=== PATIENT | male | born 1960 | race Caucasian/White ===

== ENCOUNTER → 2024-06-04 | Outpatient (CLI) | payer BC, SELFPAY ==
[2024-06-04 17:55] LABS: Absolute Lymphocyte Count 1.83 X10^3/uL (0.83-4.51); Absolute Neutrophil Count 4.5 X10^3/uL (2.0-7.7); Basophil# 0.03 X10^3/uL; Basophil% 0.4 % (0-1); Eosinophil# 0.28 X10^3/uL; Eosinophils% 3.9 % (0-5); Hematocrit 46.2 % (40-54); Lymphocyte # 1.83 X10^3/ul (0.83-4.51); Lymphocyte % 25.4 % (19-41); Mean Corp Hgb Conc 32.5 g/dL (32-36); Mean Corpuscular Hgb 29.3 pg (27.0-32.0); Mean Corpuscular Volume 90.2 fL (80-94); Mean Platelet Vol. 10.8 fl (6.2-12.0); Monocyte# 0.58 X10^3/uL; Monocyte% 8.1 % (0-10); NRBC Flagged by Analyzer 0 % (0-5); Neutrophil # 4.46 X10^3/uL (2.7-7.7); Neutrophil % 61.9 % (47-70); Platelet Count 261 K/mm3 (150-450); RBC Distribution Width CV 12.7 % (11.6-14.6); RBC Distribution Width SD 42.5 fl (35.1-43.9); Red Blood Count 5.12 M/mm3 (4.6-6.2); White Blood Count 7.2 K/mm3 (4.4-11.0)
[2024-06-04 18:20] LABS: AST(SGOT) 18 U/L (15-37); Alanine Aminotransfer ALT/SGPT 20 U/L (16-61); Albumin, Serum 3.7 g/dL (3.2-5.0); Alkaline Phosphatase 85 U/L (45-117); Anion Gap 4 (5-15); BUN 21 mg/dL (7-18); BUN/Creat Ratio 19.8 RATIO (10-20); Calcium,Total 9.3 mg/dL (8.5-10.1); Chloride 106 mmol/L (98-107); Cholesterol 217 mg/dL (200); Creatinine, Serum 1.06 mg/dL (0.70-1.30); EST Glomerular Filtration Rate 75 mL/min (>60); Est Glom Filt Rate - Afr Amer 90 mL/min (>60); Globulin 3.8 g/dL (2.2-4.2); Glucose 92 mg/dL (74-106); High Density Lipoprotein 47 mg/dL; PSA,Total - Annual Screen 0.92 ng/mL (0.00-4.00); Potassium 4.9 mmol/L (3.5-5.1); Protein, Total 7.5 g/dL (6.4-8.2); Sodium Level 139 mmol/L (136-145); Triglycerides 139 mg/dL; Very Low Density Lipoprotein 28 mg/dL (5-40)
== END | disposition home or self-care (01) ==
PROVIDERS: PCP Nurse Practitioner Family; Referring Provider Nurse Practitioner Family; Visit Provider Nurse Practitioner Family
DX: Z00.01 Encounter for general adult medical examination with abnormal findings (principal); E29.1 Testicular hypofunction; Z12.5 Encounter for screening for malignant neoplasm of prostate
CPT/HCPCS: 36415; 80053; 80061; 84153; 84403; 85025; G0103

== ENCOUNTER → 2025-01-21 | Outpatient (CLI) | payer BC, SELFPAY ==
[2025-01-21 18:24] LABS: Rheumatoid Factor < 10.0 IU/mL (<15)
[2025-01-24 12:08] LABS: ANTINUCLEAR ANTIBODIES DIRECT Negative (Negative)
[2025-01-26 01:07] LABS: CCP IgG Antibodies 26 units (0-19); Lyme IgG P18 Ab Present (.); Lyme IgG P23 Ab Present (.); Lyme IgG P28 Ab Present (.); Lyme IgG P30 Ab Present (.); Lyme IgG P39 Ab Present (.); Lyme IgG P41 Ab Present (.); Lyme IgG P45 Ab Present (.); Lyme IgG P58 Ab Present (.); Lyme IgG P66 Ab Present (.); Lyme IgG P93 Ab Present (.); Lyme IgG WB Interpretation Positive (Negative); Lyme IgM P23 Ab Present (.); Lyme IgM P39 Ab Absent (.); Lyme IgM P41 Ab Absent (.); Lyme IgM WB Interpretation Negative (Negative)
== END | disposition home or self-care (01) ==
LOC: MTLAB 16:01
PROVIDERS: PCP Nurse Practitioner Family; Referring Provider Nurse Practitioner Family; Visit Provider Nurse Practitioner Family
DX: M25.50 Pain in unspecified joint (principal)
CPT/HCPCS: 36415; 86038; 86140; 86200; 86431; 86617

== ENCOUNTER → 2025-09-20 | Outpatient (CLI) | payer BC, SELFPAY ==
[2025-09-20 15:09] LABS: Hematocrit 45.6 % (40-54); Hemoglobin 15.0 g/dL (13.0-16.5); Immature Granulocytes Count 0.010 X10^3/uL (0.0-0.0); Mean Corp Hgb Conc 32.9 g/dL (32-36); Mean Corpuscular Volume 91.8 fL (80-94); Mean Platelet Vol. 11.5 fl (6.2-12.0); NRBC Flagged by Analyzer 0 % (0-5); Platelet Count 209 K/mm3 (150-450); RBC Distribution Width CV 12.0 % (11.6-14.6); RBC Distribution Width SD 40.4 fl (35.1-43.9); Red Blood Count 4.97 M/mm3 (4.6-6.2); White Blood Count 5.3 K/mm3 (4.4-11.0)
[2025-09-20 15:35] LABS: AST(SGOT) 27 U/L (<=37); Alanine Aminotransfer ALT/SGPT 21 U/L (<=46); Albumin, Serum 4.7 g/dL (3.4-4.8); Alkaline Phosphatase 79 U/L (40-129); Anion Gap 8 (7-18); BUN 21 mg/dL (4-19); BUN/Creat Ratio 20.7 RATIO (10-20); Calcium,Total 9.8 mg/dL (7.6-11.0); Carbon Dioxide 29.1 mmol/L (20.0-29.0); Chloride 102 mmol/L (96-106); Cholesterol 200 mg/dL (<=200); Globulin 2.7 g/dL (2.2-4.2); Glucose 93 mg/dL (70-99); Low Density Lipoprotein Calc. 137 mg/dL; PSA,Total - Annual Screen 0.46 ng/mL (0.02-4.00); Potassium 4.9 mmol/L (3.5-5.1); Triglycerides 120 mg/dL; Very Low Density Lipoprotein 24 mg/dL (5-40); cholesterol:hdl ratio screen 4.83
== END | disposition home or self-care (01) ==
LOC: MTLAB 13:19
PROVIDERS: PCP Nurse Practitioner Family; Referring Provider Nurse Practitioner Family; Visit Provider Nurse Practitioner Family
DX: E78.5 Hyperlipidemia, unspecified (principal); I10 Essential (primary) hypertension; Z12.5 Encounter for screening for malignant neoplasm of prostate
CPT/HCPCS: 36415; 80053; 80061; 84153; 85025; G0103

== ENCOUNTER → 2025-09-23 | Outpatient (CLI) | payer BC, SELFPAY ==
--- OUTSIDE RECORDS SUMMARY | 2025-09-23 10:15 | XMS RPT_ITS | CCD ---
Author Organization [facility] Care Team Providers Care Software Test Specialist Name Role Phone MYNOR SERRA Unavailable Unavailable KASEY SAENZ Unavailable Unavailable KASEY SAENZ Unavailable Unavailable LINDA GERONIMO C.N.P. Attending Unavail able Dat CLAIMS CORRESPONDENCE CLERK-C, Harmony Primary Care Provider Dat CLAIMS CORRESPONDENCE CLERK-C, Harmony Attending Provider Dat CLAIMS CORRESPONDENCE CLERK-C, Harmony Referring Provider [phone] Dat, Harmony Referring Unavailable Dat, Harmony Attending Unavailable Dat, Harmony Primary Care Unavailable Dat, Harmony Primary Care Unavailable Dat, Harmony Referring Unavailable Dat, Harmony Attending Unavailable Problems Active Problems Problem Classification Problem Date Documented Da te Episodic/Chronic Other non-traumatic joint disorders (1 source) Pain in unspecified joint; Translations: [Pain in unspecified joint] Onset: 2025 Episodic Past or Other Problems Problem Classification Problem Date Documented Da te Episodic/Chronic Unclassified (1 source) Z78.9 Z86.19 Z92.29 Onset: 03-11-2023 Results Test Name Value Interpretation Reference Range Facility CCP IgG Antibodieson 025 CCP IgG Ab. 26 units High 0-19 [facility] Comment on above: Result Comment: Negative <20 Weak positive 20 - 39 Moderate positive 40 - 59 Strong positive >59 Performed at: - [facility] [id number] [employer] Program Coordinator: Negra Hicks MD, Phone: [phone] Performed at: - [facility] [address] [id number] [employer] Program Coordinator: Rizwan Siddiqi PhD, Phone: [phone] Performed By: #### L 3100.5475, L501.6710, L4600.0100, L7000.5800, L505.7010 #### [facility] [address] [place], [place], [id number] Lyme Antibodies,W Bloton Lyme Additional Comment Normal . [facility] Comment on above: Result Comment: Per CDC criteria, the Ly me IgG Immunoblot is interpreted as positive if IgG-class antibodies are detected to 5 or more B. burgdorferi proteins, and the Lyme IgM Immunoblot is interpreted as positive if IgM-class antibodies are detected to 2 or more B. burgdorferi proteins. Immunoblot patterns not meeting these criteria should not be interpreted as positive. Epitopes from certain B. burgdorferi proteins (e.g., p41) are conserved across other bacteria, which may lead to the detection of IgM-and/or IgG class antibodies on the Lyme disease immunoblots in patients without Lyme disease. Immunoblot should only be ordered on specimens that are positive or equivocal by an FDA-licensed Lyme disease antibody screening test (e.g., EIA). Results of the Lyme IgM immunoblot should not be considered in patients with 30 or more days of symptoms. Performed By: #### L 3100.5475, L501.6710, L4600.0100, L7000.5800, L505.7010 #### [facility] [address] [place], [place], [id number] LYME IgG INTERP Positive Abnormal Negative [facility] Comment on above: Performed By: #### L3100.5475, L501.6710 , L4600.0100, L7000.5800, L505.7010 #### [facility] [address] [place], [place], [id number] [phone] LYME IgM INTERP Negative Normal Negative [facility] Comment on above: Result Comment: Please Note: Lyme immuno blot alone is not recommended for the diagnosis of Lyme disease. Current guidelines recommend the use of a two-tiered approach to Lyme serology testing to improve the sensitivity and specificity of testing. [facility] offers test code 472808 Lyme Disease Serology with Reflex to aid in the diagnosis of Lyme Disease. Performed By: #### L 3100.5475, L501.6710, L4600.0100, L7000.5800, L505.7010 #### [facility] [address] [place], [address] P18 Ab Present Normal . [facility] Comment on above: Performed By: #### L3100.5475, L501.6710 , L4600.0100, L7000.5800, L505.7010 #### [facility] [address] [place], [address] P23 Ab Present Normal . [facility] Comment on above: Performed By: #### L3100.5475, L501.6710 , L4600.0100, L7000.5800, L505.7010 #### [facility] [address] [place], [address] P28 Ab Present Normal . [facility] Comment on above: Performed By: #### L3100.5475, L501.6710 , L4600.0100, L7000.5800, L505.7010 #### [facility] [address] [place], [address] P30 Ab Present Normal . [facility] Comment on above: Performed By: #### L3100.5475, L501.6710 , L4600.0100, L7000.5800, L505.7010 #### [facility] [address] [place], [facility] P39 Ab Present Normal . [facility] Comment on above: Performed By: #### L3100.5475, L501.6710 , L4600.0100, L7000.5800, L505.7010 #### [facility] [address] [place], [address] P39 Ab Absent Normal . [facility] Comment on above: Performed By: #### L3100.5475, L501.6710 , L4600.0100, L7000.5800, L505.7010 #### [facility] [address] [place], [address] P41 Ab Present Normal . [facility] Comment on above: Performed By: #### L3100.5475, L501.6710 , L4600.0100, L7000.5800, L505.7010 #### [facility] [address] [place], [address] P41 Ab Absent Normal . [facility] Comment on above: Performed By: #### L3100.5475, L501.6710 , L4600.0100, L7000.5800, L505.7010 #### [facility] [address] [place], [address] P45 Ab Present Normal . [facility] Comment on above: Performed By: #### L3100.5475, L501.6710 , L4600.0100, L7000.5800, L505.7010 #### [facility] [address] [place], [address] P58 Ab Present Normal . [facility] Comment on above: Performed By: #### L3100.5475, L501.6710 , L4600.0100, L7000.5800, L505.7010 #### [facility] [address] [place], [facility] P66 Ab Present Normal . [facility] Comment on above: Performed By: #### L3100.5475, L501.6710 , L4600.0100, L7000.5800, L505.7010 #### [facility] [address] [place], [address] P93 Ab Present Normal . [facility] Comment on above: Performed By: #### L3100.5475, L501.6710 , L4600.0100, L7000.5800, L505.7010 #### [facility] [address] [place], [place], [id number] ANTINUCLEAR ANTIBODIES DIREC Ton 01-24-2025 SHONA,DIRECT Negative Normal Negative [facility] Comment on above: Result Comment: Performed at: [facility] [id number] [employer] Program Coordinator: Rizwan Siddiqi PhD, Phone: [phone] Performed By: #### L 3100.5475, L501.6710, L4600.0100, L7000.5800, L505.7010 #### [facility] [address] [place], [place], [id number] SHONA serumOrdered By: Harmony Daugherty on 01-21-2025 Anti-Nuclear Antibody Screen Negative Negative [facility] Comment on above: Performed at: [facility] [id number] Director: Rizwan Siddiqi PhD, Phone: [phone] CRPon 01-21-2025 C-REACTIVE PROT 32.50 mg/L High 0.0-3.0 [facility] Comment on above: Performed By: #### L3100.5475, L501.6710 , L4600.0100, L7000.5800, L505.7010 #### [facility] [address] [place], [place], [id number] CRP [Mass/Vol]Ordered By: Ra lea Daugherty on 01-21-2025 C-Reactive Protein Extended Range 32.50 mg/L High 0.0-3.0 [facility] Rheumatoid Factoron 01-22-20 RHEUMATOID FAC < 10.0 Normal <15 [facility] Comment on above: Performed By: #### L3100.5475, L501.6710 , L4600.0100, L7000.5800, L505.7010 #### [facility] [address] [place], [place], [id number] Rheumatoid factor Ql (S)Orde red By: Harmony Daugherty on 01-21-2025 Rheumatoid Factor < 10.0 IU/mL <15 [facility] CBC W/Diff, Automatedon 09-0 Absolute Lymph 1.83 X10 3/uL Normal 0.83-4.51 [facility] Comment on above: Performed By: #### L501.9910, L500.4100, L100.0100, L509.3000, L500.4050 #### [facility] [address] [place], [address] Absolute Neut 4.5 X10 3/uL Normal 2.0-7.7 [facility] Comment on above: Performed By: #### L501.9910, L500.4100, L100.0100, L509.3000, L500.4050 #### [facility] [address] [place], [address] Basophils/100 WBC (Bld) 0.4 % Normal 0-1 [facility] Comment on above: Performed By: #### L501.9910, L500.4100, L100.0100, L509.3000, L500.4050 #### [facility] [address] [place], [address] Eosinophils/100 WBC (Bld) 3.9 % Normal 0-5 [facility] Comment on above: Performed By: #### L501.9910, L500.4100, L100.0100, L509.3000, L500.4050 #### [facility] [address] [place], [address] Erythrocyte distribution width (RBC) [Ratio] 12.7 % Normal 11.6-14.6 [facility] Comment on above: Performed By: #### L501.9910, L500.4100, L100.0100, L509.3000, L500.4050 #### [facility] [address] [place], [address] Hematocrit (Bld) [Volume fraction] 46.2 % Normal 40-54 [facility] Comment on above: Performed By: #### L501.9910, L500.4100, L100.0100, L509.3000, L500.4050 #### [facility] [address] [place], [address] Hemoglobin (Bld) [Mass/Vol] 15.0 g/dL Normal 13.0-16.5 [facility] Comment on above: Performed By: #### L501.9910, L500.4100, L100.0100, L509.3000, L500.4050 #### [facility] [address] [place], [address] IG% 0.300 Normal 0.0-0.9 [facility] Comment on above: Result Comment: IG% - Immature Granulocy gilberto (promyelocytes, myelocytes and metamyelocytes) > 1% indicates that a LEFT SHIFT is Present. Performed By: #### L 501.9910, L500.4100, L100.0100, L509.3000, L500.4050 #### [facility] [address] [place], [address] Lymphocytes/100 WBC (Bld) 25.4 % Normal 19-41 [facility] Comment on above: Performed By: #### L501.9910, L500.4100, L100.0100, L509.3000, L500.4050 #### [facility] [address] [place], [address] MCH (RBC) [Entitic mass] 29.3 pg Normal 27.0-32.0 [facility] Comment on above: Performed By: #### L501.9910, L500.4100, L100.0100, L509.3000, L500.4050 #### [facility] [address] [place], [address] MCHC (RBC) [Mass/Vol] 32.5 g/dL Normal 32-36 [facility] Comment on above: Performed By: #### L501.9910, L500.4100, L100.0100, L509.3000, L500.4050 #### [facility] [address] [place], [address] MCV (RBC) [Entitic vol] 90.2 fL Normal 80-94 [facility] Comment on above: Performed By: #### L501.9910, L500.4100, L100.0100, L509.3000, L500.4050 #### [facility] [address] [place], [address] Monocytes/100 WBC (Bld) 8.1 % Normal 0-10 [facility] Comment on above: Performed By: #### L501.9910, L500.4100, L100.0100, L509.3000, L500.4050 #### [facility] [address] [place], [address] Neutrophils/100 WBC (Bld) 61.9 % Normal 47-70 [facility] Comment on above: Performed By: #### L501.9910, L500.4100, L100.0100, L509.3000, L500.4050 #### [facility] [address] [place], [address] Nucleated RBC (Bld) [#/Vol] 0 10*3/uL Normal 0-5 [facility] Comment on above: Performed By: #### L501.9910, L500.4100, L100.0100, L509.3000, L500.4050 #### [facility] [address] [place], [address] Platelet mean volume (Bld) [Entitic vol] 10.8 fL Normal 6.2-12.0 [facility] Comment on above: Performed By: #### L501.9910, L500.4100, L100.0100, L509.3000, L500.4050 #### [facility] [address] [place], [address] Platelets (Bld) [#/Vol] 261 10*3/uL Normal 150-450 [facility] Comment on above: Performed By: #### L501.9910, L500.4100, L100.0100, L509.3000, L500.4050 #### [facility] [address] [place], [address] RBC (Bld) [#/Vol] 5.12 10*6/uL Normal 4.6-6.2 [facility] Comment on above: Performed By: #### L501.9910, L500.4100, L100.0100, L509.3000, L500.4050 #### [facility] [address] [place], [address] RDW SD 42.5 fl Normal 35.1-43.9 [facility] Comment on above: Performed By: #### L501.9910, L500.4100, L100.0100, L509.3000, L500.4050 #### [facility] [address] [place], [address] WBC (Bld) [#/Vol] 7.2 10*3/uL Normal 4.4-11.0 [facility] Comment on above: Performed By: #### L501.9910, L500.4100, L100.0100, L509.3000, L500.4050 #### [facility] [address] [place], [address] Comprehensive Metabolic Prof ilon 06-04-2024 Albumin [Mass/Vol] 3.7 g/dL Normal 3.2-5.0 [facility] Comment on above: Performed By: #### L501.9910, L500.4100, L100.0100, L509.3000, L500.4050 #### [facility] [address] [place], [address] Albumin/Globulin [Mass ratio] 1.0 {ratio} Normal 0.9-2.4 [facility] Comment on above: Performed By: #### L501.9910, L500.4100, L100.0100, L509.3000, L500.4050 #### [facility] [address] [place], [address] ALK P 85 U/L Normal 45-117 [facility] Comment on above: Performed By: #### L501.9910, L500.4100, L100.0100, L509.3000, L500.4050 #### [facility] [address] [place], [address] ALT [Catalytic activity/Vol] 20 U/L Normal 16-61 [facility] Comment on above: Performed By: #### L501.9910, L500.4100, L100.0100, L509.3000, L500.4050 #### [facility] [address] [place], [address] AST [Catalytic activity/Vol] 18 U/L Normal 15-37 [facility] Comment on above: Performed By: #### L501.9910, L500.4100, L100.0100, L509.3000, L500.4050 #### [facility] [address] [place], [address] Bilirubin [Mass/Vol] 0.50 mg/dL Normal 0.20-1.00 [facility] Comment on above: Result Comment: For patients on eltrombo pag therapy, use of Dimension [place] TBIL is not recommended. Performed By: #### L 501.9910, L500.4100, L100.0100, L509.3000, L500.4050 #### [facility] [address] [place], [address] BUN/CRE 19.8 RATIO Normal 10-20 [facility] Comment on above: Performed By: #### L501.9910, L500.4100, L100.0100, L509.3000, L500.4050 #### [facility] [address] [place], [address] CA,Total 9.3 mg/dL Normal 8.5-10.1 [facility] Comment on above: Performed By: #### L501.9910, L500.4100, L100.0100, L509.3000, L500.4050 #### [facility] [address] [place], [address] Chloride [Moles/Vol] 106 mmol/L Normal 98-107 [facility] Comment on above: Performed By: #### L501.9910, L500.4100, L100.0100, L509.3000, L500.4050 #### [facility] [address] [place], [address] CO2 [Moles/Vol] 29.0 mmol/L Normal 21.0-32.0 [facility] Comment on above: Performed By: #### L501.9910, L500.4100, L100.0100, L509.3000, L500.4050 #### [facility] [address] [place], [address] Creatinine [Mass/Vol] 1.06 mg/dL Normal 0.70-1.30 [facility] Comment on above: Result Comment: The validity of the calc ulated GFR GFRAA in patients over 70 years has not been determined. Clinical correlation is essential. Performed By: #### L 501.9910, L500.4100, L100.0100, L509.3000, L500.4050 #### [facility] [address] [place], [address] EST GFR - AA 90 mL/min Normal >60 [facility] Comment on above: Result Comment: GFR Eduard c Performed By: #### L 501.9910, L500.4100, L100.0100, L509.3000, L500.4050 #### [facility] [address] [place], [address] GAP 4 Low 5-15 [facility] Comment on above: Performed By: #### L501.9910, L500.4100, L100.0100, L509.3000, L500.4050 #### [facility] [address] [place], [address] GFR/1.73 sq M.predicted among non-blacks MDRD (S/P/Bld) [Vol rate/Area] 75 mL/min/{1.73_m2} Normal >60 [facility] Comment on above: Result Comment: Non- GFR Calc Performed By: #### L 501.9910, L500.4100, L100.0100, L509.3000, L500.4050 #### [facility] [address] [place], [address] Globulin (S) [Mass/Vol] 3.8 g/dL Normal 2.2-4.2 [facility] Comment on above: Performed By: #### L501.9910, L500.4100, L100.0100, L509.3000, L500.4050 #### [facility] [address] [place], [address] Glucose [Mass/Vol] 92 mg/dL Normal 74-106 [facility] Comment on above: Performed By: #### L501.9910, L500.4100, L100.0100, L509.3000, L500.4050 #### [facility] [address] [place], [address] Potassium [Moles/Vol] 4.9 mmol/L Normal 3.5-5.1 [facility] Comment on above: Performed By: #### L501.9910, L500.4100, L100.0100, L509.3000, L500.4050 #### [facility] [address] [place], [address] Sodium [Moles/Vol] 139 mmol/L Normal 136-145 [facility] Comment on above: Performed By: #### L501.9910, L500.4100, L100.0100, L509.3000, L500.4050 #### [facility] [address] [place], [address] T PROT 7.5 g/dL Normal 6.4-8.2 [facility] Comment on above: Performed By: #### L501.9910, L500.4100, L100.0100, L509.3000, L500.4050 #### [facility] [address] [place], [address] Urea nitrogen [Mass/Vol] 21 mg/dL High 7-18 [facility] Comment on above: Performed By: #### L501.9910, L500.4100, L100.0100, L509.3000, L500.4050 #### [facility] [address] [place], [address] Lipid Profileon 06-04-2024 Cholesterol [Mass/Vol] 217 mg/dL High 200 [facility] Comment on above: Result Comment: <200 mg/dL Desirable 200-240 mg/dL Borderline >240 mg/dL High Risk Performed By: #### L 501.9910, L500.4100, L100.0100, L509.3000, L500.4050 #### [facility] [address] [place], [address] Cholesterol in HDL [Mass/Vol] 47 mg/dL Normal [facility] Comment on above: Result Comment: The drugs N-Acetylcystei ne and Metamizole may falsely depress this assay. Reference Range HDL <40 mg/dL Low HDL Cholesterol HDL >or= 60 mg/dL High HDL Cholesterol Performed By: #### L 501.9910, L500.4100, L100.0100, L509.3000, L500.4050 #### [facility] [address] [place], [address] Cholesterol in LDL [Mass/Vol] 142 mg/dL High 0-130 [facility] Comment on above: Performed By: #### L501.9910, L500.4100, L100.0100, L509.3000, L500.4050 #### [facility] [address] [place], [address] Cholesterol in VLDL [Mass/Vol] 28 mg/dL Normal 5-40 [facility] Comment on above: Performed By: #### L501.9910, L500.4100, L100.0100, L509.3000, L500.4050 #### [facility] [address] [place], [address] Triglyceride [Mass/Vol] 139 mg/dL Normal [facility] Comment on above: Result Comment: The drugs N-Acetylcystei ne and Metamizole may falsely depress this assay. Serum Triglycerides Reference Interval Normal <150 mg/dL Borderline high 150 - 199 mg/dL High 200 - 499 mg/dL Very High > or = 500 mg/dL Performed By: #### L 501.9910, L500.4100, L100.0100, L509.3000, L500.4050 #### [facility] [address] [place], [address] PSA,Total - Annual Screenon 06-04-2024 PSA,TOT SCREEN 0.92 ng/mL Normal 0.00-4.00 [facility] Comment on above: Result Comment: This test was performed using the TPSA assay method for the [employer] system. Values obtained with different assay methods cannot be used interchangably. When changing PSA assays in the course of monitoring a patient, additional sequential testing should be carried out to confirm baseline values. Performed By: #### L 501.9910, L500.4100, L100.0100, L509.3000, L500.4050 #### [facility] [address] [place], [address] Testosterone, Serum Totalon 06-04-2024 Testosterone [Mass/Vol] 327.53 ng/dL Normal [facility] Comment on above: Result Comment: CENTRAL 90% REFERENCE RA NGES MALE AGE <50 197.44 - 669.58 ng/dL MALE AGE > or = 50 187.72 - 684.19 ng/dL FEMALE AGE <50 8.38 - 35.01 ng/dL FEMALE AGE > or = 50 <7.00 - 35.92 ng/dL Effective as of 04/24/21 Performed By: #### L 501.9910, L500.4100, L100.0100, L509.3000, L500.4050 #### [facility] [address] [place], [place], [address] MUMPS IGMon 03-14-2023 MUMPS IGM SEE SEPARATE REPORT [facility] Comment on above: Result Comment: Test performed at: [facility]) [address] [place], [place] [address] JOHN MANTILLA MD Performed By: #### L 800.4560, L800.7880, L800.1370, L800.1160, L800.1170 #### [place] [address] RUBAB IGMon 03-14-2023 RUBAB IGM SEE SEPARATE REPORT Normal [facility] Comment on above: Result Comment: Test performed at: [facility] [address] [place], [place] [address] JOHN MANTILLA MD Performed By: #### L 800.4560, L800.7880, L800.1370, L800.1160, L800.1170 #### [place] [address] MUMPS IGGon 03-13-2023 MUMPS IGG 285.0 AU/mL Normal Immune >10.9 [facility] Comment on above: Result Comment: Negative <9.0 Equivocal 9.0 - 10.9 Positive >10.9 A positive result generally indicates past exposure to Mumps virus or previous vaccination. Performed By: #### L 800.4560, L800.7880, L800.1370, L800.1160, L800.1170 #### [place] [address] RUBELLAon 03-13-2023 RUBELLA IMMUNE Normal [facility] Comment on above: Result Comment: REFERENCE RANGE: IMMUNE Performed By: #### L 300.0320 #### [facility] - LABORATORY [address] [place] [id number] RUBEOLAon 03-13-2023 RUBEOLA 283.0 AU/mL Normal Immune >16.4 [facility] Comment on above: Result Comment: Negative <13.5 Equivocal 13.5 - 16.4 Positive >16.4 Presence of antibodies to Rubeola is presumptive evidence of immunity except when acute infection is suspected. Performed at: [facility] [id number] [employer] Coordinator: Rizwan Siddiqi PhD, Phone: [phone] Performed By: #### L 800.4560, L800.7880, L800.1370, L800.1160, L800.1170 #### [place] [address] VZOS IGGon 03-13-2023 VZOS IGG 3990 index Normal Immune >165 [facility] Comment on above: Result Comment: Negative <135 Equivocal 135 - 165 Positive >165 A positive result generally indicates exposure to the pathogen or administration of specific immunoglobulins, but it is not indication of active infection or stage of disease. Performed By: #### L 800.4560, L800.7880, L800.1370, L800.1160, L800.1170 #### [facility] [place] [address] ANTI-HBson 03-12-2023 ANTI-HBs 81.52 mIU/mL [facility] Comment on above: Result Comment: <8.5 mIU/mL is Negative. (Individual is considered to be not immune to infection with HBV. >/= 8.5 mIU/mL and < 11.5 mIU/mL is Indeterminate. (Unable to determine if antiHBs is present at levels consistent with immunity) >11.5 mIU/mL is Positive (Anti-HBs concentration detected at >10 mIU/mL and is considered to be immune to infection with HBV) Criterion for immunity is defined by WHO Reference Preparation. Performed By: #### L 304.0465 #### [facility] [address] [place] [address] 79612 CBC NO DIFon 07-30-2021 Erythrocyte distribution width (RBC) [Ratio] 13.1 % Normal 12.7-15.3 [facility] Comment on above: Performed By: #### L200.0005 #### [facility] [address] [place] [address] 84104 Hematocrit (Bld) [Volume fraction] 45.4 % Normal 42.0-51.0 [facility] Comment on above: Performed By: #### L200.0005 #### [facility] [address] [place] [address] 19802 Hemoglobin (Bld) [Mass/Vol] 15.1 g/dL Normal 14.0-17.2 [facility] Comment on above: Performed By: #### L200.0005 #### [facility] [address] [place] [address] 86546 MCH (RBC) [Entitic mass] 30.3 pg Normal 28.8-32.2 [facility] Comment on above: Performed By: #### L200.0005 #### [facility] [address] [place] [address] 54275 MCHC (RBC) [Mass/Vol] 33.3 g/dL Normal 33.0-36.0 [facility] Comment on above: Performed By: #### L200.0005 #### [facility] [address] [place] [address] 17606 MCV (RBC) [Entitic vol] 91.2 fL Normal 80.0-94.0 [facility] Comment on above: Performed By: #### L200.0005 #### [facility] [address] [place] [address] 33054 Platelet mean volume (Bld) [Entitic vol] 8.8 fL Normal 7.4-9.2 [facility] Comment on above: Performed By: #### L200.0005 #### [facility] [address] [place] [address] 85953 PLT 224 X10(3) Normal 150-450 [facility] Comment on above: Performed By: #### L200.0005 #### [facility] [address] [place] [address] 94491 RBC 4.98 x10(6) Normal 4.80-5.50 [facility] Comment on above: Performed By: #### L200.0005 #### [facility] [address] [place] [address] 33950 WBCHS 5.9 x10(3) Normal 4.5-10.0 [facility] Comment on above: Performed By: #### L200.0005 #### [facility] [address] [place] [address] 48917 PSASCon 07-30-2021 PSASC 0.389 ng/mL Normal 0.0-4.1 [facility] Comment on above: Result Comment: Limitations: Elevations may also be associated with urethral instrumentation including catheterization of the bladder, TUR, prostatic needle biopsy, urinary retention, or prostatic infarct. Because PSA is also present in para-urethral and anal glands, as well as in breast tissue or with breast cancer, low levels of PSA can also be detected in sera from women. PSA may still be detectable even after radical prostatectomy. Performed By: #### L 304.0150, L304.1010 #### [facility] [address] [place] [address] 84244 TESTOS FR&TOTALon 07-30-2021 FREE TESTOST 3.61 ng/dL Low 4.7-24.4 [facility] Comment on above: Performed By: #### L304.0150, L304.1010 #### [facility] [address] [place] [address] 49567 TESTOST TOTAL 202.9 ng/dL Normal 193-740 [facility] Comment on above: Performed By: #### L304.0150, L304.1010 #### [facility] [address] [place] [address] 84648 CBC NO DIFon 09-25-2020 Erythrocyte distribution width (RBC) [Ratio] 13.5 % Normal 12.7-15.3 [facility] Comment on above: Performed By: #### L200.0005 #### [facility] [address] [place] [address] 54168 Hematocrit (Bld) [Volume fraction] 51.1 % High 42.0-51.0 [facility] Comment on above: Performed By: #### L200.0005 #### [facility] [address] [place] [address] 78002 Hemoglobin (Bld) [Mass/Vol] 16.9 g/dL Normal 14.0-17.2 [facility] Comment on above: Performed By: #### L200.0005 #### [facility] [address] [place] [address] 42634 MCH (RBC) [Entitic mass] 31.7 pg Normal 28.8-32.2 [facility] Comment on above: Performed By: #### L200.0005 #### [facility] [address] [place] [address] 25710 MCHC (RBC) [Mass/Vol] 33.0 g/dL Normal 33.0-36.0 [facility] Comment on above: Performed By: #### L200.0005 #### [facility] [address] [place] [address] 05551 MCV (RBC) [Entitic vol] 96.2 fL High 80.0-94.0 [facility] Comment on above: Performed By: #### L200.0005 #### [facility] [address] [place] [address] 57631 Platelet mean volume (Bld) [Entitic vol] 9.0 fL Normal 7.4-9.2 [facility] Comment on above: Performed By: #### L200.0005 #### [facility] [address] [place] [address] 32102 PLT 195 X10(3) Normal 150-450 [facility] Comment on above: Performed By: #### L200.0005 #### [facility] [address] [place] [address] 21191 RBC 5.31 x10(6) Normal 4.80-5.50 [facility] Comment on above: Performed By: #### L200.0005 #### [facility] [address] [place] [address] 14129 WBCHS 7.3 x10(3) Normal 4.5-10.0 [facility] Comment on above: Performed By: #### L200.0005 #### [facility] [address] [place] [address] 66957 DHEA SULFATEon 09-25-2020 DHEA SULFATE 112.1 ug/dL Normal 51.7-295 [facility] Comment on above: Performed By: #### L304.0140, L304.0150, L304.0162, L304.0297, L304.0475, L304.1010 #### [facility] [address] [place] [address] 76231 FREE T3on 09-25-2020 Free T3 [Mass/Vol] 3.1 pg/mL Normal 2.0-4.4 [facility] Comment on above: Performed By: #### L304.0140, L304.0150, L304.0162, L304.0297, L304.0475, L304.1010 #### - LABORATORY [address] [place] [address] 97304 Free T4on 09-25-2020 Free T4 [Mass/Vol] 1.08 ng/dL Normal 0.93-1.7 [facility] Comment on above: Performed By: #### L304.0140, L304.0150, L304.0162, L304.0297, L304.0475, L304.1010 #### - LABORATORY [address] [place] [address] 36727 PSASCon 09-25-2020 PSASC 0.4 ng/mL Normal 0.0-4.1 [facility] Comment on above: Result Comment: Limitations: Elevations may also be associated with urethral instrumentation including catheterization of the bladder, TUR, prostatic needle biopsy, urinary retention, or prostatic infarct. Because PSA is also present in para-urethral and anal glands, as well as in breast tissue or with breast cancer, low levels of PSA can also be detected in sera from women. PSA may still be detectable even after radical prostatectomy. Performed By: #### L 304.0140, L304.0150, L304.0162, L304.0297, L304.0475, L304.1010 #### - LABORATORY [address] [place] [address] 87055 TESTOS FR&TOTALon 09-25-2020 FREE TESTOST 22.93 ng/dL Normal 4.7-24.4 [facility] Comment on above: Performed By: #### L304.0140, L304.0150, L304.0162, L304.0297, L304.0475, L304.1010 #### - LABORATORY [address] [place] [address] 72875 TESTOST TOTAL 935.8 ng/dL High 193-740 [facility] Comment on above: Performed By: #### L304.0140, L304.0150, L304.0162, L304.0297, L304.0475, L304.1010 #### - LABORATORY [address] [place] [address] 95597 TSHon 09-25-2020 TSH 2.50 uIU/mL Normal 0.27-4.20 [facility] Comment on above: Performed By: #### L304.0140, L304.0150, L304.0162, L304.0297, L304.0475, L304.1010 #### - LABORATORY [address] [place] [address] 59875 RPRon 09-28-2019 Reagin Ab RPR Ql (S) Nonreactive Normal Nonreactive [facility] Comment on above: Performed By: #### UA, CBCDIF, GBTSH, GB CHEM, MG, RPR #### [facility] [address] [place], [place] [id number] CBCDIFon 09-27-2019 Abs Baso 0.02 k/uL Normal 0-0.2 [facility] Comment on above: Performed By: #### UA, CBCDIF, GBTSH, GB CHEM, MG, RPR #### [facility] [address] [place] [address] Abs Rooks 0.72 k/uL Normal 0-0.8 [facility] Comment on above: Performed By: #### UA, CBCDIF, GBTSH, GB CHEM, MG, RPR #### [facility] [address] [place] [address] Abs Neut 3.78 k/uL Normal 1.8-7.7 [facility] Comment on above: Performed By: #### UA, CBCDIF, GBTSH, GB CHEM, MG, RPR #### [facility] [address] [place] [address] Basophils/100 WBC (Bld) 0.3 % Normal 0-1 [facility] Comment on above: Performed By: #### UA, CBCDIF, GBTSH, GB CHEM, MG, RPR #### [facility] [address] [place] [address] Eosinophils (Bld) [#/Vol] 0.23 10*3/uL Normal 0-0.4 [facility] Comment on above: Performed By: #### UA, CBCDIF, GBTSH, GB CHEM, MG, RPR #### [facility] [address] [place] [address] Eosinophils/100 WBC (Bld) 3.4 % Normal 0-4 [facility] Comment on above: Performed By: #### UA, CBCDIF, GBTSH, GB CHEM, MG, RPR #### [facility] [address] [place] [address] Erythrocyte distribution width (RBC) [Ratio] 13.1 % Normal 11.5-14.5 [facility] Comment on above: Performed By: #### UA, CBCDIF, GBTSH, GB CHEM, MG, RPR #### [facility] [address] [place] [address] Hematocrit (Bld) [Volume fraction] 53.7 % High 41.0-53.0 [facility] Comment on above: Performed By: #### UA, CBCDIF, GBTSH, GB CHEM, MG, RPR #### [facility] [address] [place] [address] Hemoglobin (Bld) [Mass/Vol] 18.4 g/dL High 13.5-17.5 [facility] Comment on above: Performed By: #### UA, CBCDIF, GBTSH, GB CHEM, MG, RPR #### [facility] [address] [place] [address] Immature Gran 0.10 % Normal 0-1.9 [facility] Comment on above: Performed By: #### UA, CBCDIF, GBTSH, GB CHEM, MG, RPR #### [facility] [address] [place] [address] Lymphocytes (Bld) [#/Vol] 2.01 10*3/uL Normal 1.0-4.0 [facility] Comment on above: Performed By: #### UA, CBCDIF, GBTSH, GB CHEM, MG, RPR #### [facility] [address] [place] [address] Lymphocytes/100 WBC (Bld) 29.7 % Normal 22-44 [facility] Comment on above: Performed By: #### UA, CBCDIF, GBTSH, GB CHEM, MG, RPR #### [facility] [address] [place] [address] MCH (RBC) [Entitic mass] 31.7 pG Normal 26-34 [facility] Comment on above: Performed By: #### UA, CBCDIF, GBTSH, GB CHEM, MG, RPR #### [facility] [address] [place] [address] MCHC (RBC) [Mass/Vol] 34.3 g/dL Normal 31-37 [facility] Comment on above: Performed By: #### UA, CBCDIF, GBTSH, GB CHEM, MG, RPR #### [facility] [address] [place] [address] MCV (RBC) [Entitic vol] 92.4 fL Normal 80-100 [facility] Comment on above: Performed By: #### UA, CBCDIF, GBTSH, GB CHEM, MG, RPR #### [facility] [address] [place] [address] Monocytes/100 WBC (Bld) 10.6 % Normal 4-12 [facility] Comment on above: Performed By: #### UA, CBCDIF, GBTSH, GB CHEM, MG, RPR #### [facility] [address] [place] [address] Neutrophils/100 WBC (Bld) 55.9 % Normal 40-70 [facility] Comment on above: Performed By: #### UA, CBCDIF, GBTSH, GB CHEM, MG, RPR #### [facility] [address] [place] [address] NRBCs 0 /100 WBC Normal 0-0.9 [facility] Comment on above: Performed By: #### UA, CBCDIF, GBTSH, GB CHEM, MG, RPR #### [facility] [address] [place] [address] Platelets (Bld) [#/Vol] 200 10*3/uL Normal 150-450 [facility] Comment on above: Performed By: #### UA, CBCDIF, GBTSH, GB CHEM, MG, RPR #### [facility] [address] [place] [address] RBC (Bld) [#/Vol] 5.81 10*6/uL Normal 4.50-5.90 [facility] Comment on above: Performed By: #### UA, CBCDIF, GBTSH, GB CHEM, MG, RPR #### [facility] [address] [place], [place] [id number] WBC (Bld) [#/Vol] 6.77 10*3/uL Normal 4.5-11.0 [facility] Comment on above: Performed By: #### UA, CBCDIF, GBTSH, GB CHEM, MG, RPR #### [facility] [address] [place], [place] [id number] [facility] Chem Profon 2018 Amylase [Catalytic activity/Vol] 140 U/L High 30-110 [facility] Comment on above: Performed By: #### UA, CBCDIF, GBTSH, GB CHEM, MG, RPR #### [facility] [address] [place], [place] [id number] Anion gap [Moles/Vol] 12 mmol/L Normal 0-15 [facility] Comment on above: Performed By: #### UA, CBCDIF, GBTSH, GB CHEM, MG, RPR #### [facility] [address] [place], [place] [id number] Bilirubin Ql (U) 0.9 mg/dL Normal 0.2-1.3 [facility] Comment on above: Performed By: #### UA, CBCDIF, GBTSH, GB CHEM, MG, RPR #### [facility] [address] [place], [place] [id number] Calcium [Mass/Vol] 9.6 mg/dL Normal 8.4-10.2 [facility] Comment on above: Performed By: #### UA, CBCDIF, GBTSH, GB CHEM, MG, RPR #### [facility] [address] [place], [place] [address] Chloride [Moles/Vol] 103 mmol/L Normal 98-107 [facility] Comment on above: Performed By: #### UA, CBCDIF, GBTSH, GB CHEM, MG, RPR #### [facility] [address] [place] [address] Phosphate [Mass/Vol] 3.0 mg/dL Normal 2.5-4.5 [facility] Comment on above: Performed By: #### UA, CBCDIF, GBTSH, GB CHEM, MG, RPR #### [facility] [address] [place] [address] Potassium [Moles/Vol] 5.3 mmol/L High 3.5-5.1 [facility] Comment on above: Performed By: #### UA, CBCDIF, GBTSH, GB CHEM, MG, RPR #### [facility] [address] [place] [address] Protein [Mass/Vol] 7.3 g/dL Normal 6.2-8.2 [facility] Comment on above: Performed By: #### UA, CBCDIF, GBTSH, GB CHEM, MG, RPR #### [facility] [address] [place] [address] Sodium [Moles/Vol] 137 mmol/L Normal 137-145 [facility] Comment on above: Performed By: #### UA, CBCDIF, GBTSH, GB CHEM, MG, RPR #### [facility] [address] [place] [address] Triglyceride [Mass/Vol] 107 mg/dL Normal 35-150 [facility] Comment on above: Performed By: #### UA, CBCDIF, GBTSH, GB CHEM, MG, RPR #### [facility] [address] [place] [address] Urate [Mass/Vol] 6.6 mg/dL Normal 3.5-8.5 [facility] Comment on above: Performed By: #### UA, CBCDIF, GBTSH, GB CHEM, MG, RPR #### [facility] [address] [place] [address] Urea nitrogen [Mass/Vol] 21 mg/dL High 9-20 [facility] Comment on above: Performed By: #### UA, CBCDIF, GBTSH, GB CHEM, MG, RPR #### [facility] [address] [place] [address] Albumin [Mass/Vol] 4.2 g/dL Normal 3.5-5.0 [facility] Comment on above: Performed By: #### UA, CBCDIF, GBTSH, GB CHEM, MG, RPR #### [facility] [address] [place] [address] Alkaline Phos 53 U/L Normal 38-125 [facility] Comment on above: Performed By: #### UA, CBCDIF, GBTSH, GB CHEM, MG, RPR #### [facility] [address] [place] [address] ALT [Catalytic activity/Vol] 21 U/L Normal 0-49 [facility] Comment on above: Performed By: #### UA, CBCDIF, GBTSH, GB CHEM, MG, RPR #### [facility] [address] [place] [address] AST [Catalytic activity/Vol] 34 U/L Normal 17-59 [facility] Comment on above: Performed By: #### UA, CBCDIF, GBTSH, GB CHEM, MG, RPR #### [facility] [address] [place] [address] Cholesterol [Mass/Vol] 217 mg/dL High 100-199 [facility] Comment on above: Performed By: #### UA, CBCDIF, GBTSH, GB CHEM, MG, RPR #### [facility] [address] [place] [address] CO2 [Moles/Vol] 27 mmol/L Normal 22-30 [facility] Comment on above: Performed By: #### UA, CBCDIF, GBTSH, GB CHEM, MG, RPR #### [facility] [address] [place] [address] Creatinine [Mass/Vol] 1.15 mg/dL Normal 0.66-1.25 [facility] Comment on above: Performed By: #### UA, CBCDIF, GBTSH, GB CHEM, MG, RPR #### [facility] [address] [place] [address] eGFR Amer >60 Normal >60 [facility] Comment on above: Result Comment: MDRD calculation used fo r eGFR results. Performed By: #### U A, CBCDIF, GBTSH, GBCHEM, MG, RPR #### [facility] [address] [place] [address] eGFR non Am >60 Normal >60 [facility] Comment on above: Performed By: #### UA, CBCDIF, GBTSH, GB CHEM, MG, RPR #### [facility] [address] [place] [address] Gamma glutamyl transferase [Catalytic activity/Vol] 20 U/L Normal 15-73 [facility] Comment on above: Performed By: #### UA, CBCDIF, GBTSH, GB CHEM, MG, RPR #### [facility] [address] [place] [address] Glucose [Mass/Vol] 85 mg/dL Normal 74-106 [facility] Comment on above: Performed By: #### UA, CBCDIF, GBTSH, GB CHEM, MG, RPR #### [facility] [address] [place] [address] LDH 504 U/L Normal 318-618 [facility] Comment on above: Performed By: #### UA, CBCDIF, GBTSH, GB CHEM, MG, RPR #### [facility] [address] [place] [address] [facility] TSHon 09-27-2019 TSH Qn 3.500 uU/mL Normal 0.465-4.680 [facility] Comment on above: Result Comment: Biotin (Vitamin B7) is k nown to potentially cause an interfering NEGATIVE bias with this assay. If this result does not correlate clinically with your patient's presentation, it is suggested that Biotin use be discontinued for 2 days prior to re-testing. Performed By: #### U A, CBCDIF, GBTSH, GBCHEM, MG, RPR #### [facility] [address] [place], [place] [id number] Magnesiumon 09-27-2019 Magnesium [Mass/Vol] 2.4 mg/dL High 1.3-2.3 [facility] Comment on above: Performed By: #### UA, CBCDIF, GBTSH, GB CHEM, MG, RPR #### [facility] [address] [place], [place] [phone] Urinalysison 09-27-2019 Bilirubin [Mass/Vol] Negative Normal Negative [facility] Comment on above: Performed By: #### UA, CBCDIF, GBTSH, GB CHEM, MG, RPR #### [facility] [address] [place], [place] [id number] Clarity (U) Clear Normal Clear [facility] Comment on above: Performed By: #### UA, CBCDIF, GBTSH, GB CHEM, MG, RPR #### [facility] [address] [place], [place] [id number] Color (U) Yellow Normal Yellow [facility] Comment on above: Performed By: #### UA, CBCDIF, GBTSH, GB CHEM, MG, RPR #### [facility] [address] [place], [place] 9197024 Comments MICROSCOPIC ANALYSIS NOT DONE ON URINES WITH NEGATIVE BIOCHEMICAL TESTS Normal [facility] Comment on above: Performed By: #### UA, CBCDIF, GBTSH, GB CHEM, MG, RPR #### [facility] [address] [place], [place] [id number] Glucose [Mass/Vol] Negative Normal Negative [facility] Comment on above: Performed By: #### UA, CBCDIF, GBTSH, GB CHEM, MG, RPR #### [facility] [address] [place] [address] Hemoglobin/Blood Negative Normal Negative [facility] Comment on above: Performed By: #### UA, CBCDIF, GBTSH, GB CHEM, MG, RPR #### [facility] [address] [place] [address] Ketone Negative Normal Negative [facility] Comment on above: Performed By: #### UA, CBCDIF, GBTSH, GB CHEM, MG, RPR #### [facility] [address] [place] [address] Leukest Negative Normal Negative [facility] Comment on above: Performed By: #### UA, CBCDIF, GBTSH, GB CHEM, MG, RPR #### [facility] [address] [place] [address] Nitrite Ql (U) Negative Normal Negative [facility] Comment on above: Performed By: #### UA, CBCDIF, GBTSH, GB CHEM, MG, RPR #### [facility] [address] [place] [address] pH (U) 7.0 [pH] Normal 5-7 [facility] Comment on above: Performed By: #### UA, CBCDIF, GBTSH, GB CHEM, MG, RPR #### [facility] [address] [place] [address] Protein (U) [Mass/Vol] Negative Normal Negative [facility] Comment on above: Performed By: #### UA, CBCDIF, GBTSH, GB CHEM, MG, RPR #### [facility] [address] [place] [address] Urine Spec [place] 1.021 Normal 1.005-1.030 [facility] Comment on above: Performed By: #### UA, CBCDIF, GBTSH, GB CHEM, MG, RPR #### [facility] [address] [place] [address] Urobilinogen Qn (U) <2.0 Normal 0.0-1.0 [facility] Comment on above: Performed By: #### UA, CBCDIF, GBTSH, GB CHEM, MG, RPR #### [facility] [address] [place], [place] [id number] LMERLYon 08-26-2018 Lyme IgG/IgM AB Negative Normal NEGAT [facility] ([place]) Comment on above: Result Comment: Absence of detectable Kosta rrelia burgdorferi antibodies. A negative result does not exclude the possibility of Borrelia burgdorferi infection. If early Lyme disease is suspected, a second sample should be collected and tested two to four weeks later.Performed By:[facility] [place] [id number] Director: TROY Carbone#: [id number]#: Performed By: #### H H, CMP, GFR, TROPI, APTT, PRO, ABORH, ANTIS ####[place] [address] .Auto Diffon 08-25-2018 Ammonia mass conc (P) 0.90 10 3/mcL Normal 0.09-1.40 [facility] ([place]) Comment on above: Performed By: #### HH, CMP, GFR, TROPI, APTT, PRO, ABORH, ANTIS ####[address] [address] Basophils Auto #/vol (Bld) 0.00 10 3/mcL Normal 0.00-0.27 [facility] ([place]) Comment on above: Performed By: #### HH, CMP, GFR, TROPI, APTT, PRO, ABORH, ANTIS ####[address] [address] Basophils/100 WBC Auto (Bld) 0.7 % Normal 0.0-2.5 [facility] ([place]) Comment on above: Performed By: #### HH, CMP, GFR, TROPI, APTT, PRO, ABORH, ANTIS ####[address] [address] Eosinophils Auto #/vol (Bld) 0.40 10 3/mcL Normal 0.00-0.65 [facility] ([place]) Comment on above: Performed By: #### HH, CMP, GFR, TROPI, APTT, PRO, ABORH, ANTIS ####[address] [address] Eosinophils/100 WBC Auto (Bld) 6.0 % Normal 0.0-6.0 [facility] ([place]) Comment on above: Performed By: #### HH, CMP, GFR, TROPI, APTT, PRO, ABORH, ANTIS ####[address] [address] Lymphocytes Auto #/vol (Bld) 1.10 10 3/mcL Normal 0.90-4.32 [facility] ([place]) Comment on above: Performed By: #### HH, CMP, GFR, TROPI, APTT, PRO, ABORH, ANTIS ####[address] [address] Lymphocytes/100 WBC Auto (Bld) 18.0 % Low 20.0-40.0 [facility] ([place]) Comment on above: Performed By: #### HH, CMP, GFR, TROPI, APTT, PRO, ABORH, ANTIS ####[address] [address] Monocytes/100 WBC Auto (Bld) 13.9 % High 2.0-13.0 [facility] ([place]) Comment on above: Performed By: #### HH, CMP, GFR, TROPI, APTT, PRO, ABORH, ANTIS ####[address] [address] Neutrophils/100 WBC Auto (Bld) 61.4 % Normal 50.0-75.0 [facility] ([place]) Comment on above: Performed By: #### HH, CMP, GFR, TROPI, APTT, PRO, ABORH, ANTIS ####[address] [address] .GFRon 08-25-2018 GFR Non- >60 Normal [facility] ([place]) Comment on above: Result Comment: GFR Population mean for , Non- Americans Ages 20-29 = 116 mL/min/1.73 sq.m. Ages 30-39 = 107 mL/min/1.73 sq.m. Ages 40-49 = 99 mL/min/1.73 sq.m. Ages 50-59 = 93 mL/min/1.73 sq.m. Ages 60-69 = 85 mL/min/1.73 sq.m. Ages 70+ = 75 mL/min/1.73 sq.m.Chronic Kidney Disease: Less than 60 mL/min/1.73 square metersEnd Stage Renal Disease: Less than 15 mL/min/1.73 square meters Performed By: #### H H, CMP, GFR, TROPI, APTT, PRO, ABORH, ANTIS ####[place] [address] GFR >60 Normal [facility] ([place]) Comment on above: Result Comment: GFR Population mean for , Non- Americans Ages 20-29 = 116 mL/min/1.73 sq.m. Ages 30-39 = 107 mL/min/1.73 sq.m. Ages 40-49 = 99 mL/min/1.73 sq.m. Ages 50-59 = 93 mL/min/1.73 sq.m. Ages 60-69 = 85 mL/min/1.73 sq.m. Ages 70+ = 75 mL/min/1.73 sq.m.Chronic Kidney Disease: Less than 60 mL/min/1.73 square metersEnd Stage Renal Disease: Less than 15 mL/min/1.73 square meters Performed By: #### H H, CMP, GFR, TROPI, APTT, PRO, ABORH, ANTIS ####[address] [address] .NEUABSon 08-25-2018 Neutrophil, Absolute 3.90 10 3/mcL Normal 2.25-8.10 [facility] ([place] Comment on above: Performed By: #### HH, CMP, GFR, TROPI, APTT, PRO, ABORH, ANTIS ####[place] [id number] BMPon 08-25-2018 Creatinine mass conc 1.01 mg/dL Normal 0.60-1.40 [facility] ([place] Comment on above: Performed By: #### HH, CMP, GFR, TROPI, APTT, PRO, ABORH, ANTIS ####[place] [address] Urea nitrogen/Creatin ine mass ratio 17.8 ratio Normal 10.0-22.0 [facility] ([place] Comment on above: Performed By: #### HH, CMP, GFR, TROPI, APTT, PRO, ABORH, ANTIS ####[place] [address] Calcium mass conc 7.8 mg/dL Low 8.4-10.1 [facility] ([place] Comment on above: Performed By: #### HH, CMP, GFR, TROPI, APTT, PRO, ABORH, ANTIS ####[place] [address] Chloride molar conc 109 mmol/L Normal 98-110 [facility] ([place] Comment on above: Performed By: #### HH, CMP, GFR, TROPI, APTT, PRO, ABORH, ANTIS ####[place] [address] CO2 molar conc 29 mmol/L Normal 22-32 [facility] ([place] Comment on above: Performed By: #### HH, CMP, GFR, TROPI, APTT, PRO, ABORH, ANTIS ####[place] [address] Electrolyte Balance 3.0 mEq/L Low 4.0-15.0 [facility] ([place] Comment on above: Performed By: #### HH, CMP, GFR, TROPI, APTT, PRO, ABORH, ANTIS ####[place] [address] Glucose mass conc 93 mg/dL Normal 70-110 [facility] ([place] Comment on above: Performed By: #### HH, CMP, GFR, TROPI, APTT, PRO, ABORH, ANTIS ####[place] [address] Potassium molar conc 4.1 mmol/L Normal 3.5-5.0 [facility] ([place] Comment on above: Performed By: #### HH, CMP, GFR, TROPI, APTT, PRO, ABORH, ANTIS ####[place] [address] Sodium molar conc 141 mmol/L Normal 136-145 [facility] ([place] Comment on above: Performed By: #### HH, CMP, GFR, TROPI, APTT, PRO, ABORH, ANTIS ####[place] [address] Urea nitrogen mass conc 18.0 mg/dL Normal 8.0-22.0 [facility] ([place] Comment on above: Performed By: #### HH, CMP, GFR, TROPI, APTT, PRO, ABORH, ANTIS ####[place] [address] CBCon 08-25-2018 Erythrocyte distribution width Auto Ratio (RBC) 12.9 % Normal 11.5-15.5 [facility] ([place] Comment on above: Performed By: #### HH, CMP, GFR, TROPI, APTT, PRO, ABORH, ANTIS ####[place] [address] Hematocrit Auto Volume Fraction (Bld) 43.5 % Normal 40.0-52.0 [facility] ([place] Comment on above: Performed By: #### HH, CMP, GFR, TROPI, APTT, PRO, ABORH, ANTIS ####[place] [address] Hemoglobin mass conc (Bld) 14.5 G/dL Normal 13.0-17.5 [facility] ([place] Comment on above: Performed By: #### HH, CMP, GFR, TROPI, APTT, PRO, ABORH, ANTIS ####[place] [address] MCH Auto Entitic mass (RBC) 30.5 pg Normal 27.0-33.0 [facility] ([place]) Comment on above: Performed By: #### HH, CMP, GFR, TROPI, APTT, PRO, ABORH, ANTIS ####[place] [address] MCHC Auto mass conc (RBC) 33.3 G/dL Normal 32.0-36.0 [facility] ([place] Comment on above: Performed By: #### HH, CMP, GFR, TROPI, APTT, PRO, ABORH, ANTIS ####[place] [address] MCV Auto Entitic volume (RBC) 91.6 fL Normal 81.0-100.0 [facility] ([place] Comment on above: Performed By: #### HH, CMP, GFR, TROPI, APTT, PRO, ABORH, ANTIS ####[place] [address] Platelet mean volume Auto Entitic volume (Bld) 9.3 fL Normal 6.4-10.5 [facility] ([place] Comment on above: Performed By: #### HH, CMP, GFR, TROPI, APTT, PRO, ABORH, ANTIS ####[place] [address] Platelets Auto #/vol (Bld) 164 10 3/mcL Normal 150-450 [facility] ([place] Comment on above: Performed By: #### HH, CMP, GFR, TROPI, APTT, PRO, ABORH, ANTIS ####[place] [address] RBC Auto #/vol (Bld) 4.74 10 6/mcL Normal 4.50-6.00 [facility] ([place] Comment on above: Performed By: #### HH, CMP, GFR, TROPI, APTT, PRO, ABORH, ANTIS ####[place] [address] WBC Auto #/vol (Bld) 6.30 10 3/mcL Normal 4.50-10.80 [facility] ([place] Comment on above: Performed By: #### HH, CMP, GFR, TROPI, APTT, PRO, ABORH, ANTIS ####[place] [address] CRPon 08-25-2018 CRP mass conc 2.20 mg/dL High <=0.80 [facility] ([place] Comment on above: Performed By: #### HH, CMP, GFR, TROPI, APTT, PRO, ABORH, ANTIS ####[place] [address] TROPIon 08-25-2018 Troponin I.cardiac mass conc ng/mL Normal 0.000-0.040 [facility] ([place] Comment on above: Result Comment: Troponin I reference [facility] (06/06/14): 0.00-0.040 ng/mL Negative and non-diagnostic. >0.040 ng/mL Consistent with cardiac damage, increased clinical risk and possibility of myocardial infarction. Serial measurements, a rise & fall in test results, clinical history, appropriate symptoms and/or ECG changes may help assess possibility of CA. *Other non-acute coronary syndrome conditions such as CHF, myocarditis, pulmonary emboli, sepsis and cardiac surgery could result in myocardial damage and increased troponin levels. Performed By: #### H H, CMP, GFR, TROPI, APTT, PRO, ABORH, ANTIS ####[place] [address] Troponin I.cardiac mass conc ng/mL Normal 0.000-0.040 [facility] ([place] Comment on above: Result Comment: Troponin I reference [facility] (06/06/14): 0.00-0.040 ng/mL Negative and non-diagnostic. >0.040 ng/mL Consistent with cardiac damage, increased clinical risk and possibility of myocardial infarction. Serial measurements, a rise & fall in test results, clinical history, appropriate symptoms and/or ECG changes may help assess possibility of CA. *Other non-acute coronary syndrome conditions such as CHF, myocarditis, pulmonary emboli, sepsis and cardiac surgery could result in myocardial damage and increased troponin levels. Performed By: #### H H, CMP, GFR, TROPI, APTT, PRO, ABORH, ANTIS ####[place] [address] .Auto Diffon 08-24-2018 Ammonia mass conc (P) 1.10 10 3/mcL Normal 0.09-1.40 [facility] ([place] Comment on above: Performed By: #### HH, CMP, GFR, TROPI, APTT, PRO, ABORH, ANTIS ####[address] [address] Basophils Auto #/vol (Bld) 0.00 10 3/mcL Normal 0.00-0.27 [facility] ([place] Comment on above: Performed By: #### HH, CMP, GFR, TROPI, APTT, PRO, ABORH, ANTIS ####[address] [address] Basophils/100 WBC Auto (Bld) 0.3 % Normal 0.0-2.5 [facility] ([place] Comment on above: Performed By: #### HH, CMP, GFR, TROPI, APTT, PRO, ABORH, ANTIS ####[address] [address] Eosinophils Auto #/vol (Bld) 0.30 10 3/mcL Normal 0.00-0.65 [facility] ([place] Comment on above: Performed By: #### HH, CMP, GFR, TROPI, APTT, PRO, ABORH, ANTIS ####[address] [address] Eosinophils/100 WBC Auto (Bld) 3.1 % Normal 0.0-6.0 [facility] ([place] Comment on above: Performed By: #### HH, CMP, GFR, TROPI, APTT, PRO, ABORH, ANTIS ####[address] [address] Lymphocytes Auto #/vol (Bld) 1.80 10 3/mcL Normal 0.90-4.32 [facility] ([place] Comment on above: Performed By: #### HH, CMP, GFR, TROPI, APTT, PRO, ABORH, ANTIS ####[address] [address] Lymphocytes/100 WBC Auto (Bld) 15.8 % Low 20.0-40.0 [facility] ([place] Comment on above: Performed By: #### HH, CMP, GFR, TROPI, APTT, PRO, ABORH, ANTIS ####[address] [address] Monocytes/100 WBC Auto (Bld) 9.6 % Normal 2.0-13.0 [facility] ([place] Comment on above: Performed By: #### HH, CMP, GFR, TROPI, APTT, PRO, ABORH, ANTIS ####[address] [address] Neutrophils/100 WBC Auto (Bld) 71.2 % Normal 50.0-75.0 [facility] ([place]) Comment on above: Performed By: #### HH, CMP, GFR, TROPI, APTT, PRO, ABORH, ANTIS ####[address] [address] .GFRon 08-24-2018 GFR Non- >60 Normal [facility] ([place] Comment on above: Result Comment: GFR Population mean for , Non- Americans Ages 20-29 = 116 mL/min/1.73 sq.m. Ages 30-39 = 107 mL/min/1.73 sq.m. Ages 40-49 = 99 mL/min/1.73 sq.m. Ages 50-59 = 93 mL/min/1.73 sq.m. Ages 60-69 = 85 mL/min/1.73 sq.m. Ages 70+ = 75 mL/min/1.73 sq.m.Chronic Kidney Disease: Less than 60 mL/min/1.73 square metersEnd Stage Renal Disease: Less than 15 mL/min/1.73 square meters Performed By: #### H H, CMP, GFR, TROPI, APTT, PRO, ABORH, ANTIS ####[address] [address] GFR >60 Normal [facility] ([place] Comment on above: Result Comment: GFR Population mean for , Non- Americans Ages 20-29 = 116 mL/min/1.73 sq.m. Ages 30-39 = 107 mL/min/1.73 sq.m. Ages 40-49 = 99 mL/min/1.73 sq.m. Ages 50-59 = 93 mL/min/1.73 sq.m. Ages 60-69 = 85 mL/min/1.73 sq.m. Ages 70+ = 75 mL/min/1.73 sq.m.Chronic Kidney Disease: Less than 60 mL/min/1.73 square metersEnd Stage Renal Disease: Less than 15 mL/min/1.73 square meters Performed By: #### H H, CMP, GFR, TROPI, APTT, PRO, ABORH, ANTIS ####[place] [address] .NEUABSon 08-24-2018 Neutrophil, Absolute 8.00 10 3/mcL Normal 2.25-8.10 [facility] ([place]) Comment on above: Performed By: #### HH, CMP, GFR, TROPI, APTT, PRO, ABORH, ANTIS ####[place] [address] APTTon 08-24-2018 aPTT Coag time (Bld) 33.9 s Normal 25.0-35.0 [facility] ([place] Comment on above: Result Comment: For Heparin anticoagulat ion therapy, the recommendedtherapeutic range is: 54-77 seconds (APTT Correlationwith Anti-Xa therapeutic range of 0.3-0.7 units/ml).PLEASE REFERENCE THE PHARMACY PROTOCOL FOR DOSING. Performed By: #### H H, CMP, GFR, TROPI, APTT, PRO, ABORH, ANTIS ####[place] [address] aPTT Coag time (Bld) Unknown Normal [facility] ([place] Comment on above: Performed By: #### HH, CMP, GFR, TROPI, APTT, PRO, ABORH, ANTIS ####[place] [address] CBCon 08-24-2018 Erythrocyte distribution width Auto Ratio (RBC) 13.1 % Normal 11.5-15.5 [facility] ([place] Comment on above: Performed By: #### CBC, ADIFF, ANEU #### [place] [address] Hematocrit Auto Volume Fraction (Bld) 45.2 % Normal 40.0-52.0 [facility] ([place] Comment on above: Performed By: #### CBCDEVANG, ANEU #### [place] [address] Hemoglobin mass conc (Bld) 15.1 G/dL Normal 13.0-17.5 [facility] ([place] Comment on above: Performed By: #### CBCDEVANG, ANEU #### [place] [address] MCH Auto Entitic mass (RBC) 30.5 pg Normal 27.0-33.0 [facility] ([place] Comment on above: Performed By: #### CBCDEVANG, ANEU #### [place] [address] MCHC Auto mass conc (RBC) 33.3 G/dL Normal 32.0-36.0 [facility] ([place] Comment on above: Performed By: #### CBCDEVANG, ANEU #### [place] [address] MCV Auto Entitic volume (RBC) 91.5 fL Normal 81.0-100.0 [facility] ([place] Comment on above: Performed By: #### CBCDEVANG, ANEU #### [place] [address] Platelet mean volume Auto Entitic volume (Bld) 9.5 fL Normal 6.4-10.5 [facility] ([place] Comment on above: Performed By: #### CBCDEVANG, ANEU #### [place] [address] Platelets Auto #/vol (Bld) 184 10 3/mcL Normal 150-450 [facility] ([place] Comment on above: Performed By: #### CBCDEVANG, ANEU #### [place] [address] RBC Auto #/vol (Bld) 4.94 10 6/mcL Normal 4.50-6.00 [facility] ([place] Comment on above: Performed By: #### CBCDEVANG, ANEU #### [place] [address] WBC Auto #/vol (Bld) 11.30 10 3/mcL High 4.50-10.80 [facility] ([place] Comment on above: Performed By: #### CBC, ADIFF, ANEU #### [place] [address] CMPon 08-24-2018 Albumin/Globulin mass ratio 1.2 {ratio} Normal 0.9-1.6 [facility] ([place] Comment on above: Performed By: #### HH, CMP, GFR, TROPI, APTT, PRO, ABORH, ANTIS ####[place] [address] ALP enzyme act/vol 62 U/L Normal 38-126 [facility] ([place] Comment on above: Performed By: #### HH, CMP, GFR, TROPI, APTT, PRO, ABORH, ANTIS ####[place] [address] Bili Total 0.9 mg/dL Normal 0.2-1.2 [facility] ([place] Comment on above: Performed By: #### HH, CMP, GFR, TROPI, APTT, PRO, ABORH, ANTIS ####[place] [address] Creatinine mass conc 1.04 mg/dL Normal 0.60-1.40 [facility] ([place] Comment on above: Performed By: #### HH, CMP, GFR, TROPI, APTT, PRO, ABORH, ANTIS ####[place] [address] Globulin Calculated mass conc (S) 3.3 G/dL Normal 1.5-3.8 [facility] ([place] Comment on above: Performed By: #### HH, CMP, GFR, TROPI, APTT, PRO, ABORH, ANTIS ####[place] [address] Protein mass conc 7.1 G/dL Normal 6.0-8.5 [facility] ([place] Comment on above: Performed By: #### HH, CMP, GFR, TROPI, APTT, PRO, ABORH, ANTIS ####[place] [address] Urea nitrogen/Creatin ine mass ratio 18.3 ratio Normal 10.0-22.0 [facility] ([place] Comment on above: Performed By: #### HH, CMP, GFR, TROPI, APTT, PRO, ABORH, ANTIS ####[place] [address] Albumin mass conc 3.8 G/dL Normal 3.2-4.8 [facility] ([place] Comment on above: Performed By: #### HH, CMP, GFR, TROPI, APTT, PRO, ABORH, ANTIS ####[place] [address] ALT enzyme act/vol 47 U/L Normal 12-55 [facility] ([place] Comment on above: Performed By: #### HH, CMP, GFR, TROPI, APTT, PRO, ABORH, ANTIS ####[place] [address] AST enzyme act/vol 33 U/L Normal 8-34 [facility] ([place] Comment on above: Performed By: #### HH, CMP, GFR, TROPI, APTT, PRO, ABORH, ANTIS ####[place] [address] Calcium mass conc 8.4 mg/dL Normal 8.4-10.1 [facility] ([place] Comment on above: Performed By: #### HH, CMP, GFR, TROPI, APTT, PRO, ABORH, ANTIS ####[place] [address] Chloride molar conc 104 mmol/L Normal 98-110 [facility] ([place] Comment on above: Performed By: #### HH, CMP, GFR, TROPI, APTT, PRO, ABORH, ANTIS ####[place] [address] CO2 molar conc 30 mmol/L Normal 22-32 [facility] ([place] Comment on above: Performed By: #### HH, CMP, GFR, TROPI, APTT, PRO, ABORH, ANTIS ####[place] [address] Electrolyte Balance 4.0 mEq/L Normal 4.0-15.0 [facility] ([place] Comment on above: Performed By: #### HH, CMP, GFR, TROPI, APTT, PRO, ABORH, ANTIS ####[place] [address] Glucose mass conc 92 mg/dL Normal 70-110 [facility] ([place] Comment on above: Performed By: #### HH, CMP, GFR, TROPI, APTT, PRO, ABORH, ANTIS ####[place] [address] Potassium molar conc 4.1 mmol/L Normal 3.5-5.0 [facility] ([place] Comment on above: Performed By: #### HH, CMP, GFR, TROPI, APTT, PRO, ABORH, ANTIS ####[place] [address] Sodium molar conc 138 mmol/L Normal 136-145 [facility] ([place] Comment on above: Performed By: #### HH, CMP, GFR, TROPI, APTT, PRO, ABORH, ANTIS ####[place] [address] Urea nitrogen mass conc 19.0 mg/dL Normal 8.0-22.0 [facility] ([place] Comment on above: Performed By: #### HH, CMP, GFR, TROPI, APTT, PRO, ABORH, ANTIS ####[address] 08-24-2018 Erythrocyte Sed Rate 1 mm/hr Normal 0-20 [facility] ([place] Comment on above: Performed By: #### HH, CMP, GFR, TROPI, APTT, PRO, ABORH, ANTIS ####[address] 08-24-2018 Hematocrit Auto Volume Fraction (Bld) 44.7 % Normal 40.0-52.0 [facility] ([place] Comment on above: Performed By: #### HH, CMP, GFR, TROPI, APTT, PRO, ABORH, ANTIS ####[place] [address] Hemoglobin mass conc (Bld) 15.0 G/dL Normal 13.0-17.5 [facility] ([place] Comment on above: Performed By: #### HH, CMP, GFR, TROPI, APTT, PRO, ABORH, ANTIS ####[place] [address] PROon 08-24-2018 INR Coag RelTime (PPP) 1.0 {INR} Normal [facility] ([place] Comment on above: Result Comment: The [employer] (CHEST, 1992, 102:312S-25S)recommended therapeutic range for oral anticoagulant therapy is:LOW RISK: Prophylaxis of venous thrombosis INR: 2.0-3.0 Treatment of pulmonary embolism 2.0-3.0 Prevention of systemic embolism 2.0-3.0HIGH RISK: Mechanical prosthetic valves 2.5-3.5 Performed By: #### H H, CMP, GFR, TROPI, APTT, PRO, ABORH, ANTIS ####[place] [address] Prothrombin time (PT) Coag time (PPP) 12.0 s Normal 9.0-14.6 [facility] ([place] Comment on above: Result Comment: Effective 04/12/08, Prot marko results may be affected by some antibiotics (i.e. Ciprofloxacin, Azithromycin, Bactrim) which may potentiate the action of oral anticoagulants, with further increases in Protime/INR. Performed By: #### H H, CMP, GFR, TROPI, APTT, PRO, ABORH, ANTIS ####[place] [address] TABOon 08-24-2018 ABO/Rh Interp Positive Invalid Interpretation Code [facility] ([place] Comment on above: Performed By: #### HH, CMP, GFR, TROPI, APTT, PRO, ABORH, ANTIS ####[place] [address] TABSon 08-24-2018 Antibody Screen Tango Negative Normal [facility] ([place] Comment on above: Performed By: #### HH, CMP, GFR, TROPI, APTT, PRO, ABORH, ANTIS ####[place] [id number] [address] [place] [address] TROPIon 08-24-2018 Troponin I.cardiac mass conc 0.018 ng/mL Normal 0.000-0.040 [facility] ([place] Comment on above: Result Comment: Troponin I reference [facility] (06/06/14): 0.00-0.040 ng/mL Negative and non-diagnostic. >0.040 ng/mL Consistent with cardiac damage, increased clinical risk and possibility of myocardial infarction. Serial measurements, a rise & fall in test results, clinical history, appropriate symptoms and/or ECG changes may help assess possibility of CA. *Other non-acute coronary syndrome conditions such as CHF, myocarditis, pulmonary emboli, sepsis and cardiac surgery could result in myocardial damage and increased troponin levels. Performed By: #### H H, CMP, GFR, TROPI, APTT, PRO, ABORH, ANTIS ####[address] [address] Troponin I.cardiac mass conc ng/mL Normal 0.000-0.040 [facility] ([place] Comment on above: Result Comment: Troponin I reference [facility] (06/06/14): 0.00-0.040 ng/mL Negative and non-diagnostic. >0.040 ng/mL Consistent with cardiac damage, increased clinical risk and possibility of myocardial infarction. Serial measurements, a rise & fall in test results, clinical history, appropriate symptoms and/or ECG changes may help assess possibility of CA. *Other non-acute coronary syndrome conditions such as CHF, myocarditis, pulmonary emboli, sepsis and cardiac surgery could result in myocardial damage and increased troponin levels. Performed By: #### H H, CMP, GFR, TROPI, APTT, PRO, ABORH, ANTIS ####[address] [address] XR CHEST 1 VIEWon 08-24-2018 XR CHEST 1 VIEW ORIGINALXR CHEST 1 V IEW CLINICAL STATEMENT: chest pain COMPARISON: None FINDINGS: The cardiomediastinal contours are normal. There is no consolidation, vascular congestion, pleural effusion, or pneumothorax. There are no acute abnormalities to osseous structures. There is a mild S-shaped curvature of the thoracic spine. IMPRESSION: No acute radiographic findings. I have personally reviewed the images of this examination and agree with the resident's findings and interpretation. Interpreted By: Fitz JordanPreliminary Report By: Rachna Tillman MDElectronically Signed By: Fitz Jordan Dictated Date: 08/24/2018 7:18:11 PM Prelim Date: 08/24/2018 7:18:39 PM Sign Date: 08/24/2018 7:27:17 PM Normal [facility] ([place]) Encounters Encounter Date Encounter Type Care Provider Facility Start: 01-21-2025 End: 01-21-2025 ambulatory [facility] CLAIMS CORRESPONDENCE CLERK-C Work Phone: [facility] Work Phone: Start: 01-21-2025 End: 01-21-2025 Patient encounter procedure Harmony Daugherty CLAIMS CORRESPONDENCE CLERK-C -Laboratory, [place] Work Phone: Start: 01-21-2025 End: 01-21-2025 ambulatory [facility] Facility:[facility] Start: 06-24-2024 Encounter for genera l adult medical examination with [facility] Start: 06-04-2024 End: 06-04-2024 ambulatory [facility] Facility:[facility] Start: 03-11-2023 [facility] Start: 08-24-2018 End: 08-25-2018 Patient encounter procedure MYNOR SERRA Facility:A Plan of Treatment Date Care Activity Detail Author Start: 01-21-2025 Borrelia burgdorferi blot test [facility] Cyclic citrullinated peptide IgG Ab [Units/volume] in Serum or Plasma [facility] Laboratory data interpretation [facility] Payers Date Payer Category Payer Self-pay 2024 Unknown [id number] 2010 Unknown [id number] 1960 Unknown [id number] [id number] [id number] Unknown [id number] [id number] [id number] Unknown [id number] [id number] [id number] Unknown [id number] [id number] [id number] Social History Date Type Detail Facility Tobacco smoking stat [facility] Unknown if ever smoked [facility] Work Phone: Start: 2025 Sex Male (finding) [facility] Start: 1960 Sex Assigned At Male [facility] Evaluation note Note Date & Type Note Facility Evaluation note No assessment information availa ble [facility] Work Phone: Reason for referral (narrative) Note Date & Type Note Facility Reason for referral (narrative) No reason for referral information available [facility] Work Phone: Summary Purpose Family History No Family History Records FoundNo Family History Records FoundNo Family History Records FoundNo Family History Records FoundNo Family History Records Found Advance Directives No Advanced Directives Records FoundNo Advanced Directives Records FoundNo Advanced Directives Records FoundNo Advanced Directives Records FoundNo Advanced Directives Records Found Additional Source Comments (unrecognized sect ion and content) No Status Records FoundNo Status Records FoundNo Status Records FoundNo Status Records FoundNo Status Records Found INFORMATION SOURCE (unrecogn ized section and content) DATE CREATED AUTHOR 09/13/2018 [facility] ([place]) DATE CREATED AUTHOR AUTHOR'S ORGANIZ ATION [facility] DATE CREATED AUTHOR AUTHOR'S ORGANIZ ATION 08/08/2021 [facility] DATE CREATED AUTHOR AUTHOR'S ORGANIZ ATION 04/02/2023 [facility] DATE CREATED AUTHOR AUTHOR'S ORGANIZ ATION 01/27/2025 [facility] Care Teams (unrecognized sec tion and content) Team Status: Active Member Role Status Dates MOHAN Guzman Primary Care Provider Active Team Status: Inactive Member Role Status Dates MOHAN Guzman Primary Care Provider Active Start: January 21, 2025 End: January 21, 2025 MOHAN Guzman Attending Provider Active St art: January 21, 2025 End: January 21, 2025 MOHAN Guzman Referring Provider Active St art: January 21, 2025 End: January 21, 2025 Goals (unrecognized section and content) Goals may be documented in a n alternate section FOR RECORDS PERTAINING TO PATIENTS WHO ARE OR HAVE BEEN ENROLLED IN A CHEMICAL DEPENDENCY/SUBSTANCEABUSE PROGRAM, SOME INFORMATION MAY BE OMITTED. This clinical summary was aggregated from multiple sources. Caution should be exercised in using it in the provision of clinical care. This summary normalizes information from multiple sources, and as a consequence, information in this document may materially change the coding, format and clinical context of patient data. In addition, data may be omitted in some cases. CLINICAL DECISIONS SHOULD BE BASED ON THE PRIMARY CLINICAL RECORDS. [employer] [facility]. provides no warranty or guarantee of the accuracy or completeness of information in this document.
[2025-09-24 06:07] LABS: Mumps Antibody,IgG > 300.0 AU/mL (Immune >10.9)
== END | disposition home or self-care (01) ==
PROVIDERS: PCP Nurse Practitioner Family; Referring Provider Nurse Practitioner Family; Visit Provider Nurse Practitioner Family
DX: Z78.9 Other specified health status (principal); Z28.39 Other underimmunization status
CPT/HCPCS: 36415; 86706; 86709; 86735; 86762; 86765